=== PATIENT | male | born 1995 | race African-American/Black ===

== ENCOUNTER 2021-07-12 08:51 | Emergency (ER) | payer OTHER ==
[~2021-07-12] VITALS: Ht 172.7 cm; Wt 91.0 kg
[2021-07-12] MEDS ORDERED: SODIUM CHLORIDE 0.9% 1,000 ML IV ONE (09:15)
[2021-07-12] MEDS ORDERED: OLANZAPINE 10 MG/VIAL IM ONE (09:15)
[2021-07-12] MEDS ORDERED: LORAZEPAM 2MG/ML CPJ IV ONE (09:15)
[2021-07-12] MEDS ORDERED: LORAZEPAM 2MG/ML CPJ ONE (09:23)
[2021-07-12 10:31] LABS: BASOPHILS % 0.7 % (0.0-2.0); EOSINOPHILS % 0.3 % (0.0-5.0); HEMATOCRIT. 43.4 % (42.0-52.0); HEMOGLOBIN. 15.3 g/dL (14.0-18.0); LYMPHOCYTES % 24.2 % (20.0-50.0); MEAN CORPUSCULAR VOLUME 99.4 fL (80.0-94.0); MEAN PLATELET VOLUME 7.6 fl (7.4-10.4); MONOCYTES % 10.3 % (2.0-8.0); NEUTROPHILS % 64.5 % (40.0-76.0); PLATELET 351 x1000/uL (130-400); RED BLOOD CELL COUNT 4.36 mill/uL (4.7-6.1); RED CELL DISTRIBUTION WIDTH 13.1 % (11.6-14.6)
[2021-07-12 10:38] LABS: CLARITY URINE CLEAR (CLEAR); COLOR URINE YELLOW (YELLOW); KETONES URINE NEGATIVE (NEGATIVE); LEUKOCYTE ESTERASE URINE NEGATIVE (NEGATIVE); NITRITE URINE NEGATIVE (NEGATIVE); OCCULT BLOOD URINE NEGATIVE (NEGATIVE); PROTEIN URINE 1+ (NEGATIVE); UROBILINOGEN URINE 0.2 E.U./dL (0.2-1.0)
[2021-07-12 10:40] LABS: CHLORIDE 105 mEq/L (98-107)
[2021-07-12 10:45] LABS: ETHANOL BLOOD 242 mg/dL
[2021-07-12 10:52] LABS: OPIATES URINE SCREEN NEGATIVE (NEGATIVE)
[2021-07-12 10:53] LABS: *AMPHETAMINES SCREEN URINE PRESUMTIVE POSITIVE (NEGATIVE); *BARBITURATES SCREEN URINE NEGATIVE (NEGATIVE); *BENZODIAZEPINES SCREEN URINE NEGATIVE (NEGATIVE); *COCAINE SCREEN URINE NEGATIVE (NEGATIVE); CANNABINOID URINE SCREEN PRESUMTIVE POSITIVE (NEGATIVE); PHENCYCLIDINE URINE SCREEN PRESUMTIVE POSITIVE (NEGATIVE)
[2021-07-12 10:54] LABS: METHADONE URINE SCREEN NEGATIVE (NEGATIVE)
[2021-07-12 18:53] VITALS: BP 135/88
== END 2021-07-12 18:55 | disposition home or self-care (01) ==
LOC: ER 08:51
DX: F10.129 Alcohol abuse with intoxication, unspecified (principal); Y90.8 Blood alcohol level of 240 mg/100 ml or more; G92.9 Unspecified toxic encephalopathy; T40.995A Adverse effect of other psychodysleptics [hallucinogens], initial encounter; T43.625A Adverse effect of amphetamines, initial encounter; Y92.9 Unspecified place or not applicable
CPT/HCPCS: 36415; 80053; 80305; 80307; 80320; 80329; 81003; 85025; 96361; 96372; 96374; 99285; J2060; J3490; J7030; Z7610; A4315; G0480